=== PATIENT | female | born 1965 | race Caucasian/White ===

== ENCOUNTER → 2018-12-05 | Outpatient (CLI) | payer OTHER ==
--- NOTE | 2018-12-05 16:39 | PCVCIMAG ---
APPROVED REPORT Study performed: 12/05/2018 12:56:21 Exam: Stress Echocardiogram Indication: Hypertension, Dyspnea on Exertion, Hyperlipidemia, Fam Hx CAD Patient Location: Echo lab Stress Nurse: Anjana Kirkpatrick RN Status: routine Ht: 5 ft 4 in HR: 99 bpm BP: 140/74 mmHg Rhythm: NSR Medical History Medical History: HTN, Diabetes Procedure The patient underwent an Exercise Stress Test using the Devon Protocol. Blood pressure, heart rate, and EKG were monitored. An Echocardiogram was performed by transportation refrigeration technician in four stages in quad fashion. At peak stress, four selected images were obtained and placed side by side with resting images for comparison. Stress Test Details Stress Test: Exercise stress testing was performed using a Devon protocol. HR Resting HR: 99 bpmMax Heart Rate (APMHR): 166 bpm Max HR Achieved: 146 bpmTarget HR (85% APMHR): 141 bpm % of APMHR: 87 Recovery HR: 116 bpm HR response to stress: Normal HR response to stress BP Resting BP: 140/74 mmHg Max BP: 160/78 mmHg Recovery BP: 128/68 mmHg BP response to stress: Normal blood pressure response to stress. ECG Resting ECG: Sinus Rhythm Stress ECG: Sinus Rhythm Recovery ECG: Sinus Rhythm Clinical Reason for Termination: Maximal effort, Dyspnea Stress Symptoms: Dyspnea Exercise duration: 5 min 01 sec Highest Stage Achieved: Stage 2: 2.5 mph at 12% grade. Exercise capacity: 7.00 METs Overall Exercise Capacity for Age: Poor Stress ECG Conclusion ECG: Non-ischemic Clinical: Non-ischemic Pre-Stress Echo The resting Echocardiogram showed normal left ventricular contractility with an estimated Ejection Fraction of about 65%. Normal wall motion in all segments on baseline images. Moderate left ventricular hypertrophy is present. Normal wall motion in all segments on baseline images. Post-Stress Echo The stress Echocardiogram showed normal left ventricular contractility with an estimated Ejection Fraction of about >70%. Normal augmentation of wall motion in all segments on post stress images. Conclusion Clinical Response: Non-ischemic Exercise Capacity: Below Average Stress ECG Response: Non-ischemic Stress Echo Images: Non-ischemic No clinical, EKG or echocardiographic evidence for ischemia. Normal stress echocardiogram with maximal exercise stress. Resting outflow tract gradient was 30 mmHg, with valsalva it increased to 35 mmHg. Post-exercise outflow tract gradient was 41-50 mmHg. No valvular abnormalities identified by doppler and color flow. Other Information Study Quality: Adequate <Conclusion> No clinical, EKG or echocardiographic evidence for ischemia. Normal stress echocardiogram with maximal exercise stress. Resting outflow tract gradient was 30 mmHg, with valsalva it increased to 35 mmHg. Post-exercise outflow tract gradient was 41-50 mmHg. No valvular abnormalities identified by doppler and color flow.
== END | disposition home or self-care (01) ==
LOC: PCVCIMAG 14:36
PROVIDERS: ATTEND Internal Medicine Cardiovascular Disease
DX: E11.9 Type 2 diabetes mellitus without complications (principal); I10 Essential (primary) hypertension; R01.1 Cardiac murmur, unspecified; Z79.4 Long term (current) use of insulin; Z78.0 Asymptomatic menopausal state; Z88.0 Allergy status to penicillin
CPT/HCPCS: 93325; 93351